=== PATIENT | female | born 1945 | race Caucasian/White ===

== ENCOUNTER → 2016-05-17 | Outpatient (CLI) | payer MEDICARE, BC ==
--- NOTE | 2016-05-18 09:07 | DI ---
Indication: ITS.REASON: OSSEOUS DENSITIES with decreasing range of motion in the right fingers, palpable lump PROCEDURE: MRI HAND RIGHT W/O CONTRAST: Encounter: Initial Comparison: None available Technique: Multiplanar multisequence MR imaging of the right hand was performed without contrast. Findings: Bone marrow signal intensity is normal. No acute fracture. The contents of the carpal tunnel appear normal. There is thickening along of the extensor tendon sheath at the level of the wrist with increased T2 signal intensity. There is irregularity, thickening, increased T2 signal intensity and at least partial tearing of the extensor indicis tendon. The remaining tendons appear intact without discrete tear. There is some fluid in the subcutaneous tissues as well. The intrinsic hand musculature shows normal signal intensity. Scattered low T1 and high T2 signal intensity foci are seen in the bones consistent with benign cystic change. Impression: Tearing of the extensor indicis tendon at the level of the carpal metacarpal joint. .
--- NOTE | 2016-05-18 09:17 | DI ---
Indication: ITS.REASON: OSSEOUS DENSITIES with palpable lump on the dorsum of the wrist and decreased range of motion PROCEDURE: MRI WRIST RIGHT W/O CONTRAST: Encounter: Initial Comparison: Right in conjunction with MRI of the hand performed the same time Technique: Multiplanar multisequence MR imaging of the right wrist was performed without contrast. Findings: There is focal edema along the extensor tendon sheath. There is irregularity and increased T2 signal intensity within the base of the extensor indicis tendon at the level of the carpometacarpal joint as seen on the hand MRI. No definite intact fibers are seen on the T2 star sequences. The remaining extensor tendons appear intact. The carpal tunnel contents appear normal as do the flexor tendons of the wrist. There are scattered areas of cystic change seen, most prominent within the trapezium and triquetral bone. Mild degenerative change in the radiocarpal joint. The scapholunate and lunotriquetral ligaments appear grossly intact. There is mild motion artifact. No acute fracture seen. Triangular fibrocartilage appears grossly intact Impression: Complete rupture of the extensor indicis tendon at the level of the carpometacarpal joint. .
== END ==
LOC: IMA 17:29
PROVIDERS: ATTEND Family Medicine
DX: S66.211A Strain of extensor muscle, fascia and tendon of right thumb at wrist and hand level, initial encounter (principal); X58.XXXA Exposure to other specified factors, initial encounter; Y93.9 Activity, unspecified; Y92.9 Unspecified place or not applicable; Y99.9 Unspecified external cause status; M89.741 Major osseous defect, right hand